=== PATIENT | male | born 1995 | race Caucasian/White ===

== ENCOUNTER 2016-12-19 17:22 | Emergency (ER) | payer SELFPAY ==
--- NOTE | 2016-12-23 23:16 | ER ---
ADMIT: 12/19/2016 RM/LOC: [facility] MR#: [id number] [address] [place] [id number] VIR[place]IE LUI [address] [place] [address] Emergency Room Report SEX: M AGE: 21 : 1995 DATE: 12/19/2016 CHIEF COMPLAINT: Unable to urinate. HISTORY OF PRESENT ILLNESS: This is a pleasant 21-year-old male, who presents to the emergency department with his father for evaluation. The patient states the last time he urinated was approximately 8:00 or 9:00 this morning. Since then, he has been unable to urinate and has increasing lower abdominal pain and distention. Patient reveals that he has been using Sudafed for the last couple of days for some upper respiratory symptoms. States his last dose was this morning. He is otherwise healthy. Denies any fevers, chills, nausea, diarrhea. Does admit to some loss of appetite. Denies any recent urinary frequency, hematuria, or dysuria. States this has never happened in the past. MEDICATIONS: He is on no medications. PAST MEDICAL HISTORY: He has no past medical history. ALLERGIES: NO KNOWN MEDICAL ALLERGIES. SOCIAL HISTORY: He does smoke one pack a day and denies any other drug use or alcohol use. COURSE IN THE EMERGENCY ROOM: Patient was seen and examined. Significant for lower abdominal distention and discomfort with palpation. We did get a bladder scan, which showed greater than 900 mL. Elliott catheter was placed with Uro-Jet prior to catheterization. UA was obtained, negative for any signs of infection. We did discharge the patient with catheter in place for followup tomorrow for removal. ADMIT: 12/19/2016 RM/LOC: [facility] MR#: [id number] [address] [place] [address], [place] [id number] VIRGINIE LUI [address] [place] [address] Emergency Room Report SEX: M AGE: 21 : 1995 IMPRESSION: Acute urinary retention, likely secondary to Sudafed. DISPOSITION: Did discuss with the patient that due to the recent use of the Sudafed, this problem is likely to continue to occur throughout the night until the medicine is out of his system. Encouraged him to keep Elliott overnight with close follow-up to prevent readmission to the ER for recatheterization. He is to follow up with Dr. Elias's office tomorrow to have it removed and provide further management of his urinary retention. Hopefully, this resolved after the medicine had a chance to clear. He was instructed to stop using the Sudafed and to keep the Elliott in place until he follows up with Dr. Elias tomorrow. He was discharged in stable condition. BOBO Rao / Raf Davis MD / [place] JOB #: [id number] CC: Raf Davis MD, Attending Physician Jeramie Elias MD, Family Physician
== END 2016-12-19 18:52 | disposition home or self-care (01) ==
LOC: ER 17:22
DX: R33.9 Retention of urine, unspecified (principal); F17.210 Nicotine dependence, cigarettes, uncomplicated; Z79.899 Other long term (current) drug therapy

== ENCOUNTER 2016-12-20 08:45 | Emergency (ER) | payer SELFPAY ==
--- NOTE | 2016-12-26 15:34 | ER ---
ADMIT: 12/20/2016 RM/LOC: ER [facility] MR#: [id number] [address] [id number] VIRGINIE LUI [address] [place] [address] Emergency Room Report SEX: M AGE: 21 : 1995 DATE: 12/20/2016 ADDENDUM: CHIEF COMPLAINT: Urinary retention, needs catheter removed. HISTORY OF PRESENT ILLNESS: This is a 21-year-old who was in the ER yesterday. It sounds like he has been taking Sudafed, which caused urinary retention. A catheter was placed. I told him to keep it overnight, follow with Dr. Elias today for removal. He was not able to get in to Dr. Elias, so he presented back to the ER. Catheter was removed, told him to never take Sudafed and follow up as needed. BOBO Moran / Rico Whiting MD / modl JOB #: [id number] CC: Rico Whiting MD, Attending Physician Alessio Solano MD, Family Physician
== END 2016-12-20 09:56 | disposition home or self-care (01) ==
LOC: ER 08:45
DX: Z46.6 Encounter for fitting and adjustment of urinary device (principal); R33.9 Retention of urine, unspecified; F17.210 Nicotine dependence, cigarettes, uncomplicated